=== PATIENT | female | born 1985 | race Caucasian/White ===

== ENCOUNTER 2017-03-13 16:41 | Emergency (ER) | payer MEDICAID ==
[~2017-03-13] VITALS: Ht 167.6 cm; Wt 52.8 kg
[~2017-03-13 16:41] MED LIST: Z.0.NO CURRENT MEDS; ZITH500T PO
[2017-03-13 16:53] VITALS: BP 107/59; PULSE 105; RESP 16; TEMP 99.5; O2SAT 98
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
--- NOTE | 2017-03-13 17:45 | RADRPT ---
EXAM DATE/TIME: 03/13/2017 17:32 [facility] COMPARISON: No previous studies available for comparison. INDICATIONS : Cough and chest pain for 2 weeks. MEDICAL HISTORY : None. SURGICAL HISTORY : None. ENCOUNTER: Initial ACUITY: 2 weeks PAIN SCORE: 5/10 LOCATION: Bilateral chest FINDINGS: PA and lateral views of the chest demonstrate the lungs to be symmetrically aerated without evidence of mass, infiltrate or effusion. The cardiomediastinal contours are unremarkable. Osseous structure s are intact. CONCLUSION: Normal examination. Tanner Farris MD on March 13, 2017 at 17:43 Board Certified Radiologist. This report was verified electronically.
--- NOTE | 2017-03-13 20:49 | EKG ---
Date Performed: 03/13/2017 Time Performed: 17:14:19 PTAGE: 31 years EKG: Sinus rhythm NONSPECIFIC ST & T-WAVE ABNORMALITY BORDERLINE ECG NO PREVIOUS TRACING DOCTOR: David Berg Interpretating Date/Time 03/13/2017 20:48:17
== END 2017-03-13 18:51 | disposition home or self-care (01) ==
LOC: PHED 16:41
DX: J06.9 Acute upper respiratory infection, unspecified (principal); R07.89 Other chest pain; R94.31 Abnormal electrocardiogram [ECG] [EKG]
CPT/HCPCS: 71020; 87804; 93005; 99284